=== PATIENT | male | born 1985 | race African-American/Black ===

== ENCOUNTER 2017-07-28 10:19 | Emergency (ER) | payer BC ==
[~2017-07-28] VITALS: Ht 177.8 cm; Wt 86.2 kg
[~2017-07-28 10:19] MED LIST: ADVAIR 100-501 EACH; ADVAIR 250-501 EACH INH; DOXYCYCLINE 10100 MG PO; PROAIR HFA8.5 GM INH; PROVENTIL IH; SYMBICORT160 MCG/4. INH; ZPAK PO
[2017-07-28] MEDS ORDERED: SINGULAIR 10 MG10 M1 PO (10:35)
[2017-07-28] MEDS ORDERED: TRIAMCINOLONE A80 G2 TOP (10:36)
[2017-07-28 11:32] LABS: HEMATOCRIT 41.5 % (42.0-52.0); HEMOGLOBIN 13.3 gm/dL (14.0-18.0); MCH 22.8 pg (26.0-34.0); MCHC 32.1 g/dL (28.0-37.0); MCV 71.1 fL (80.0-100.0); RBC 5.83 mil/uL (4.50-6.00); RDW 15.3 % (10.5-14.5); WBC 7.2 thou/uL (4.0-11.0)
[2017-07-28 11:45] LABS: CALCIUM 9.3 mg/dL (8.5-10.1); CREATININE 1.1 mg/dL (0.7-1.3); POTASSIUM 3.7 mmol/L (3.5-5.1)
[2017-07-28] MEDS ORDERED: DOXYCYCLINE 10100 MG PO (12:07)
[2017-07-28] MEDS ORDERED: HYDROCODONE-AP1 EAC6 PO (12:08)
[2017-07-28] MEDS ORDERED: MOBIC7.5 MG PO (12:08)
== END 2017-07-28 13:20 | disposition home or self-care (01) ==
LOC: ER 10:19
PROVIDERS: Physician Assistant
DX: L03.116 Cellulitis of left lower limb (principal); J45.909 Unspecified asthma, uncomplicated

== ENCOUNTER 2019-06-07 18:41 | Emergency (ER) | payer BC ==
[~2019-06-07] VITALS: Ht 177.8 cm; Wt 93.2 kg
[~2019-06-07 18:41] MED LIST changes: +HYDROCODONE-AP1 EAC6 PO; +MOBIC7.5 MG PO; +SINGULAIR 10 MG10 M1 PO; +TRIAMCINOLONE A80 G2 TOP
[2019-06-07] MEDS ORDERED: TESSALON PERLE100 MG PO (20:28)
[2019-06-07 21:00] VITALS: BP 132/70
== END 2019-06-07 21:00 | disposition home or self-care (01) ==
LOC: ER 18:41
DX: R06.02 Shortness of breath (principal); R05 Cough; J45.909 Unspecified asthma, uncomplicated; Z20.828 Contact with and (suspected) exposure to other viral communicable diseases